=== PATIENT | male | born 1970 | race African-American/Black ===

== ENCOUNTER 2021-10-24 05:58 | Emergency (ER) | payer OTHER ==
[2021-10-24 06:04] VITALS: BMI 25.7
[2021-10-24] MEDS ORDERED: DIPHTH,PERTUSS(ACELL),TET 0.5 ML DISP.SYRIN IM ONE ×2 (06:26→06:34)
[2021-10-24] MEDS ORDERED: ACETAMINOPHEN 500 MG TABLET (FP) PO ONE (06:26)
[2021-10-24] MEDS ORDERED: ACETAMINOPHEN 325 MG TABLET (FP) ONE (06:34)
[2021-10-24] MEDS ORDERED: LIDOCAINE HCL 2% (50ML VIAL) SQ PRN (07:25)
[2021-10-24 09:41] VITALS: BP 147/69; PULSE 73; TEMP 97.8
== END 2021-10-24 09:41 | disposition home or self-care (01) ==
LOC: JER 05:58
PROC: 0HQCXZZ Repair Left Upper Arm Skin, External Approach (ICD-10-PCS; principal; 2021-10-24)
PROC: 3E0234Z Introduction of Serum, Toxoid and Vaccine into Muscle, Percutaneous Approach (ICD-10-PCS; 2021-10-24)
DX: S41.152A Open bite of left upper arm, initial encounter (principal); W54.0XXA Bitten by dog, initial encounter
CPT/HCPCS: 90471; 90715; 99283-25

== ENCOUNTER 2021-10-29 15:38 | Inpatient (IN) | payer OTHER ==
[2021-10-29] MEDS ORDERED: CEFTRIAXONE 1 GM in DEXTROSE 5%-WATER - 100 ML IVPB ONE (17:22)
[2021-10-29] MEDS ORDERED: CEFTRIAXONE 1 GM/50 ML BAG ONE ×2 (18:06→20:00)
[2021-10-29 19:08] LABS: BASO % 0.6 % (0-2.0); EOS % 0.8 % (0-4.5); HEMATOCRIT 42.6 % (35.4-49); HEMOGLOBIN 14.2 GM/dL (11.7-16.9); LYMPH % 18.5 % (8-40); MCH 30.7 pg (25.7-33.7); MCHC 33.4 g/dl (32.0-35.9); MEAN PLT VOLUME 8.8 fl (7.5-11.1); MONO % 8.3 % (3.8-10.2); NEUT % 71.8 % (42.8-82.8); PLATELET COUNT 311 10^3/uL (134-434); RBC 4.64 M/mm3 (4.00-5.60); RDW 12.2 % (11.9-15.9)
[2021-10-29 19:28] LABS: ALBUMIN 3.6 g/dl (3.4-5.0)
[2021-10-29 19:30] LABS: CALCIUM 9.6 mg/dL (8.5-10.1)
[2021-10-29 19:31] LABS: BLOOD UREA NITROGEN 12.9 mg/dL (7-18)
[2021-10-29 19:34] LABS: CREATININE 1.2 mg/dL (0.55-1.3)
[2021-10-29 19:36] LABS: BILIRUBIN,TOTAL 1.2 mg/dL (0.2-1); TOT PROT 8.1 g/dl (6.4-8.2)
[2021-10-29] MEDS ORDERED: morphine SULFATE 4 MG/ML VIAL IVPUSH PRN (22:39)
[2021-10-30] MEDS ORDERED: VANCOMYCIN 1 GRAM (PRE-DOCKED) 1,000 MG/250 ML BAG IVPB ONE (01:10)
[2021-10-30] MEDS ORDERED: VANCOMYCIN 1 GM in D5W (PRE-DOCKED) 1,000 MG/250 ML IVPB ONE (02:00)
[2021-10-30 03:47] VITALS: BMI 24.3
[2021-10-30] MEDS ORDERED: cefTRIAXone SODIUM 1 GM VIAL ONE (09:07)
[2021-10-30] MEDS ORDERED: DEXTROSE 5%-WATER - 50 ML IVPB ONE (09:07)
[2021-10-30] MEDS: ACETAMINOPHEN 325 MG TABLET (FP) PO PRN ×2 (09:30→19:37)
[2021-10-30] MEDS: ENOXAPARIN NA (PORCINE) 40 MG/0.4 ML DISP.SYRIN SQ SCH (09:31)
[2021-10-30] MEDS ORDERED: CEFTRIAXONE 1 GM in DEXTROSE 5%-WATER - 50 ML IVPB SCH (10:00)
[2021-10-30] MEDS ORDERED: DEXTROSE 5%-WATER 100 ML IVPB ONE (11:05)
[2021-10-30] MEDS: CEFTRIAXONE 2 GM in DEXTROSE 5%-WATER 2 GM/100 ML BAG IVPB SCH (11:11)
[2021-10-30] MEDS ORDERED: SENNOSIDES 8.6MG TABLET (FP) PO PRN (14:08)
[2021-10-30] MEDS: VANCOMYCIN 1 GRAM (PRE-DOCKED) 1,000 MG/250 ML BAG IVPB SCH (15:12)
[2021-10-30] MEDS ORDERED: ACETAMINOPHEN 325 MG TABLET (FP) PO PRN (17:00)
[2021-10-31] MEDS: ACETAMINOPHEN 325 MG TABLET (FP) PO PRN ×2 (01:57→21:12)
[2021-10-31] MEDS: VANCOMYCIN 1 GRAM (PRE-DOCKED) 1,000 MG/250 ML BAG IVPB SCH ×2 (03:52→14:53)
[2021-10-31 08:40] LABS: BASO % 0.6 % (0-2.0); EOS % 1.9 % (0-4.5); HEMATOCRIT 40.5 % (35.4-49); HEMOGLOBIN 13.6 GM/dL (11.7-16.9); LYMPH % 9.9 % (8-40); MCH 30.9 pg (25.7-33.7); MCHC 33.7 g/dl (32.0-35.9); MEAN CELL VOLUME 91.9 fl (80-96); MEAN PLT VOLUME 8.4 fl (7.5-11.1); NEUT % 79.6 % (42.8-82.8); PLATELET COUNT 293 10^3/uL (134-434); RBC 4.41 M/mm3 (4.00-5.60); RDW 12.2 % (11.9-15.9); WHITE BLOOD COUNT 10.9 K/mm3 (4.0-10.0)
[2021-10-31 08:41] LABS: INR 1.26 (0.83-1.09); PROTHROMBIN TIME (PATIENT) 14.2 SEC (9.7-13.0)
[2021-10-31 08:56] LABS: CALCIUM 8.9 mg/dL (8.5-10.1)
[2021-10-31 08:57] LABS: ALBUMIN 3.2 g/dl (3.4-5.0); BLOOD UREA NITROGEN 9.5 mg/dL (7-18)
[2021-10-31 09:00] LABS: CREATININE 1.2 mg/dL (0.55-1.3)
[2021-10-31 09:02] LABS: BILIRUBIN,TOTAL 1.4 mg/dL (0.2-1); TOT PROT 7.3 g/dl (6.4-8.2)
[2021-10-31] MEDS ORDERED: DEXTROSE 5%-WATER 100 ML IVPB ONE (09:23)
[2021-10-31] MEDS: CEFTRIAXONE 2 GM in DEXTROSE 5%-WATER 2 GM/100 ML BAG IVPB SCH (11:04)
[2021-10-31] MEDS: ENOXAPARIN NA (PORCINE) 40 MG/0.4 ML DISP.SYRIN SQ SCH (11:05)
[2021-10-31] MEDS ORDERED: oxyCODONE HCL 5 MG TABLET PO PRN (14:36)
[2021-11-01] MEDS: VANCOMYCIN 1 GRAM (PRE-DOCKED) 1,000 MG/250 ML BAG IVPB SCH ×3 (03:56→18:35)
[2021-11-01 08:43] LABS: BASO % 0.9 % (0-2.0); HEMOGLOBIN 13.2 GM/dL (11.7-16.9); LYMPH % 22.7 % (8-40); MCH 30.5 pg (25.7-33.7); MCHC 33.1 g/dl (32.0-35.9); MEAN CELL VOLUME 92.1 fl (80-96); MEAN PLT VOLUME 8.2 fl (7.5-11.1); MONO % 9.2 % (3.8-10.2); NEUT % 65.2 % (42.8-82.8); PLATELET COUNT 308 10^3/uL (134-434); RBC 4.34 M/mm3 (4.00-5.60); RDW 12.2 % (11.9-15.9); WHITE BLOOD COUNT 7.2 K/mm3 (4.0-10.0)
[2021-11-01 09:13] LABS: BLOOD UREA NITROGEN 11.4 mg/dL (7-18); CALCIUM 8.8 mg/dL (8.5-10.1)
[2021-11-01 09:16] LABS: CREATININE 1.1 mg/dL (0.55-1.3); MAGNESIUM 2.4 mg/dL (1.8-2.4); PHOSPHOROUS 3.1 mg/dL (2.5-4.9)
[2021-11-01 09:18] LABS: BILIRUBIN,TOTAL 0.8 mg/dL (0.2-1)
[2021-11-01] MEDS ORDERED: DEXTROSE 5%-WATER 100 ML IVPB ONE (09:23)
[2021-11-01] MEDS ORDERED: DOCUSATE SODIUM 100 MG CAPSULE (FP) PO SCH (10:00)
[2021-11-01] MEDS: CEFTRIAXONE 2 GM in DEXTROSE 5%-WATER 2 GM/100 ML BAG IVPB SCH (10:32)
[2021-11-01] MEDS: ENOXAPARIN NA (PORCINE) 40 MG/0.4 ML DISP.SYRIN SQ SCH (10:32)
[2021-11-01] MEDS ORDERED: DOCUSATE SODIUM 100 MG CAPSULE (FP) PO PRN (16:10)
[2021-11-01] MEDS: LACTOBACILLUS ACIDOPHILUS 1 TABLET PO SCH ×2 (17:03→21:41)
[2021-11-01] MEDS: ACETAMINOPHEN 325 MG TABLET (FP) PO PRN (21:41)
[2021-11-02] MEDS: VANCOMYCIN 1 GRAM (PRE-DOCKED) 1,000 MG/250 ML BAG IVPB SCH ×2 (03:48→16:41)
[2021-11-02 09:21] LABS: BASO % 0.8 % (0-2.0); EOS % 1.2 % (0-4.5); HEMATOCRIT 39.6 % (35.4-49); LYMPH % 21.5 % (8-40); MCH 30.4 pg (25.7-33.7); MCHC 32.9 g/dl (32.0-35.9); MEAN CELL VOLUME 92.4 fl (80-96); MEAN PLT VOLUME 8.1 fl (7.5-11.1); MONO % 10.3 % (3.8-10.2); NEUT % 66.2 % (42.8-82.8); PLATELET COUNT 329 10^3/uL (134-434); RBC 4.28 M/mm3 (4.00-5.60); RDW 12.2 % (11.9-15.9); WHITE BLOOD COUNT 7.1 K/mm3 (4.0-10.0)
[2021-11-02 09:54] LABS: BLOOD UREA NITROGEN 10.4 mg/dL (7-18); CALCIUM 8.8 mg/dL (8.5-10.1); MAGNESIUM 2.4 mg/dL (1.8-2.4)
[2021-11-02 09:55] LABS: ALBUMIN 3.2 g/dl (3.4-5.0)
[2021-11-02 09:57] LABS: CREATININE 1.1 mg/dL (0.55-1.3); PHOSPHOROUS 3.3 mg/dL (2.5-4.9)
[2021-11-02 09:58] LABS: BILIRUBIN,TOTAL 0.8 mg/dL (0.2-1)
[2021-11-02] MEDS: CEFTRIAXONE 2 GM in DEXTROSE 5%-WATER 2 GM/100 ML BAG IVPB SCH (10:13)
[2021-11-02] MEDS ORDERED: DEXTROSE 5%-WATER 100 ML IVPB ONE (10:38)
[2021-11-02] MEDS: LACTOBACILLUS ACIDOPHILUS 1 TABLET PO SCH ×2 (10:40→21:56)
[2021-11-02] MEDS: ENOXAPARIN NA (PORCINE) 40 MG/0.4 ML DISP.SYRIN SQ SCH (10:42)
[2021-11-02 20:09] LABS: HIV INTERPRETATION NEGATIVE (NEGATIVE)
[2021-11-03 06:18] VITALS: BP 125/72; PULSE 61; TEMP 98.4
[2021-11-03] MEDS ORDERED: TETANUS IMMUNE GLOBULIN 250 UNITS DISP.SYRIN IM ONE (10:30)
[2021-11-03] MEDS ORDERED: NALOXONE HCL 0.4 MG/ML VIAL ONE (10:46)
[2021-11-03] MEDS ORDERED: EPINEPHrine 1:10,000 (P-F SYR) 1 MG/10 ML DISP.SYRIN ONE (11:07)
== END 2021-11-03 11:09 | disposition expired | DRG 383 ==
LOC: JER 15:38 → JERBED 17:21 → J8W 10-30 02:56
PROVIDERS: ADMIT Hospitalist; ATTEND Internal Medicine
PROC: 5A12012 Performance of Cardiac Output, Single, Manual (ICD-10-PCS; principal; 2021-11-03)
DX: L03.114 Cellulitis of left upper limb (principal); I46.9 Cardiac arrest, cause unspecified; L08.9 Local infection of the skin and subcutaneous tissue, unspecified; S61.452A Open bite of left hand, initial encounter; R74.01 Elevation of levels of liver transaminase levels; K76.0 Fatty (change of) liver, not elsewhere classified; W54.0XXA Bitten by dog, initial encounter; Y93.9 Activity, unspecified; Y92.89 Other specified places as the place of occurrence of the external cause; Y99.9 Unspecified external cause status
CPT/HCPCS: 36415; 71046-TC-FY; 73201-TC-RT; 76700-TC; 80053; 82550; 82553; 83735; 84100; 85025; 85610; 87040; 87070; 87205; 87389; 93005; 93010; 99285-25; C9803; G0480; Q9967; U0003; U0005